=== PATIENT | male | born 1970 | race Caucasian/White ===

== ENCOUNTER 2019-05-23 23:39 | Emergency (ER) | payer OTHER ==
[2019-05-24 01:43] VITALS: BP 113/74; BMI 26.2
[2019-05-24] MEDS ORDERED: DEXAMETHASONE SOD PHOSPHATE 10 MG/1 ML VIAL IM ONE (02:24)
[2019-05-24] MEDS ORDERED: KETOROLAC TROMETHAMINE 60 MG/2 ML VIAL IM ONE (02:24)
[2019-05-24] MEDS ORDERED: KETOROLAC TROMETHAMINE 60 MG/2 ML VIAL ONE (02:26)
[2019-05-24] MEDS ORDERED: DEXAMETHASONE SOD PHOSPHATE 10 MG/1 ML VIAL ONE (02:26)
--- NOTE | 2019-05-24 02:32 | PDOC ---
History of Present Illness - General Chief Complaint: Sore Throat Stated Complaint: FEVER, SORE THROAT Time Seen by Provider: 05/24/19 02:30 History Source: Patient Exam Limitations: No Limitations - History of Present Illness Initial Comments: HPI: 48 y/o male presenting to [facility] ER complaining of fevers x4 days, sore throat, "coughing up blood," and bilateral lower back pain. Some relief with OTC Acetaminophen and Ibuprofen; last used yesterday. Reports unintentional 30 lbs weightloss over the past week. Denies chest pain or shortness of breath. Denies night sweats, known TB exposure, recent incarceration, international travel, or visits to wooded areas. No primary care doctor. 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 Social Hx: - EtOH: Denies - Tobacco: Denies - Street drugs: Denies, never used needles Medical Hx: - Prediabetes Review of Systems: In addition to that documented in the HPI above, the additional ROS was obtained : Constitutional- Endorses fevers and chills Head- Denies vision changes ENMT- Endorses sore throat CV- Denies chest pain Resp- Denies SOB GI- Denies vomiting or diarrhea - Denies painful urination, hematuria, or increased urinary frequency MSK- Denies recent trauma Skin- Noticed dots on left arm today Neuro- Denies new numbness or tingling or weakness Endocrine- Denies polyuria Heme- Denies bleeding or bruising Physical Examination: Vital signs and nursing notes reviewed. Constitutional- Diaphoretic adult male in no acute distress or obvious discomfort. Found semi-fowlers on hospital bed. Answered all questions appropriately and completely. Head- Normocephalic. No obvious external signs of trauma. Eyes- Sclerae white. Ears- Hearing grossly intact. Nose- No nasal discharge. Throat- Mild erythema without exudates in posterior oropharynx. No buccal lesions. Teeth and gingiva in good general condition. Neck- Supple, trachea is midline. No cervical or supraclavicular lymphadenopathy. Cardiovascular / Chest- Regular rate and regular rhythm. No murmur, rubs, clicks , or gallops. Peripheral pulses- radial pulses full. No anterior chest wall tenderness. Respiratory- Breathing unlabored. Equal chest rise and fall. Clear to auscultation bilaterally. No stridor, no wheezing, no rhonchi. Gastrointestinal- abdomen is soft, non-tender, non-distended. Neuro- Alert and oriented x4. Moving all four extremities spontaneously. Skin- Diaphoretic. Noted singular maculopapular lesions to the left upper extremity. Nonpainful. No erythema. No janeway lesions or osler nodes. - No R or L CVA tenderness. Psych- Affect- appropriate. Mood- normal. Speech was non-labored, non- pressured. MDM: 48 y/o male presenting with sore throat and a fever. Febrile at triage; given acetaminophen. Vitals unremarkable for hypotension or tachycardia. Physical exam as described above. Possible strep pharyngitis vs viral pharyngitis. Ordered Decadron, toradol, and LR IVFB for symptom relief. CXR unremarkable for acute cardiopulmonary pathology per ED wet read. Radiology report pending. Reviewed laboratory data. No leukocytosis. No other significant derangement. Rapid strep positive. Will prescribe Amoxicillin. Given first dose in the ED. Discussed physical exam findings, laboratory results, and xrays findings with pt. Answered all questions. Provided return precautions. pt expressed verbal understanding and agreement with plan to discharge home with outpatient follow up. Provided copies of todays results. Referred pt to resident clinic for follow up. Duglas Bo M.D., PGY2 Emergency Medicine Resident Past History - Past Medical History Allergies/Adverse Reactions: Allergies Allergy/AdvReac Type Severity Reaction Status Date / Time No Known Allergies Allergy Verified 05/25/19 15:59 Home Medications: Ambulatory Orders Amoxicillin/Potassium Clav [Augmentin 875-125 Tablet] 1 each PO BID 10 Days #20 tablet 05/24/19 - Psycho Social/Smoking Cessation Hx Smoking History: Never smoked Information on smoking cessation initiated: No Hx Alcohol Use: No Drug/Substance Use Hx: No *Physical Exam - Vital Signs Last Vital Signs Temp Pulse Resp BP Pulse Ox 103 F H 88 16 113/74 98 05/23/19 23:45 05/23/19 23:45 05/23/19 23:45 05/23/19 23:45 05/23/19 23:45 ED Treatment Course - LABORATORY CBC & Chemistry Diagram: 05/24/19 04:00 05/24/19 04:00 Discharge - Discharge Information Problems reviewed: Yes Clinical Impression/Diagnosis: Strep pharyngitis Condition: Good Disposition: HOME - Admission No - Additional Discharge Information Prescriptions: Amoxicillin/Potassium Clav [Augmentin 875-125 Tablet] 1 each PO BID 10 Days #20 tablet - Follow up/Referral Referrals: [facility] [place] [facility] [Provider Group] - Patient Discharge Instructions Patient Printed Discharge Instructions: DI for Strep Throat, Amoxicillin and Clavulanic Acid Additional Instructions: You were seen today for sore throat and fever. Your rapid strep test was positive. This is likely the cause of your symptoms. You can take over the counter Tylenol or Advil as needed for pain and fever. Take as directed on the package insert. Do not exceed the recommended dosage. Follow up with your primary care doctor in the next two weeks. You will need to call to make an appointment. The number is included in this packet. A copy of todays results are attached to this packet. Take it to the appointment so your doctor can review them. I have entered a referral for you to see a primary care physician at [facility] [place] [facility]. You will need to call to make an appointment. The telephone number is [phone]. The address is- [facility] at [address] [place] [address] Go to the nearest emergency department if your condition worsens or you feel like you need additional emergency evaluation. Print Language: GUINEAN - Post Discharge Activity Work/Back to School Note: Back to Work
--- NOTE | 2019-05-24 02:32 | PDOC ---
Attending Attestation - Resident Resident Name: Duglas Bo - ED Attending Attestation I have performed the following: I have examined & evaluated the patient, The case was reviewed & discussed with the resident, I agree w/resident's findings & plan - HPI HPI: 05/24/19 06:04 see resident hpi - Physicial Exam PE: 05/24/19 06:04 agree with resident exam - Medical Decision Making 05/24/19 06:04 48-year-old male with fever and sore throat Chest x-ray shows no focal infiltrate Patient given Toradol and Decadron Strep screen is positive There are no indicators of retropharyngeal abscess or epiglottitis Patient is well-appearing walking around the emergency department and improved Will DC on Augmentin
[2019-05-24] MEDS ORDERED: LACTATED RINGERS SOLUTION 1000 ML INFUS.BAG IV ONE (03:53)
[2019-05-24] MEDS ORDERED: ACETAMINOPHEN 1000 MG/100 ML VIAL (NON FORMULARY) IVPB ONE (03:53)
[2019-05-24] MEDS ORDERED: ACETAMINOPHEN INJECTION 100 ML IVPB ONE (03:55)
[2019-05-24 05:09] LABS: BASO % 0.7 % (0-2.0); HEMATOCRIT 39.6 % (35.4-49); HEMOGLOBIN 13.1 GM/dL (11.7-16.9); LYMPH % 16.8 % (8-40); MCH 27.7 pg (25.7-33.7); MCHC 33.1 g/dl (32.0-35.9); MEAN CELL VOLUME 83.5 fl (80-96); MEAN PLT VOLUME 9.1 fl (7.5-11.1); MONO % 9.8 % (3.8-10.2); NEUT % 72.7 % (42.8-82.8); PLATELET COUNT 208 K/MM3 (134-434); RBC 4.74 M/mm3 (4.00-5.60); RDW 13.3 % (11.9-15.9); WHITE BLOOD COUNT 4.6 K/mm3 (4.0-10.0)
[2019-05-24 05:50] LABS: ALBUMIN 3.4 g/dl (3.4-5.0); BILIRUBIN,TOTAL 0.5 mg/dL (0.2-1); BLOOD UREA NITROGEN 14.4 mg/dL (7-18); CALCIUM 8.3 mg/dL (8.5-10.1); CREATININE 1.1 mg/dL (0.55-1.3); POTASSIUM 3.8 mmol/L (3.5-5.1); TOT PROT 6.7 g/dl (6.4-8.2)
[2019-05-24] MEDS ORDERED: AMOX TR/POT CLAV 875MG/125MG TABLETS (FP) PO ONE (06:05)
[2019-05-24] MEDS ORDERED: AMOX TR/POT CLAV 875MG/125MG TABLETS (FP) ONE (06:20)
[2019-05-24 06:29] VITALS: PULSE 83; TEMP 99
--- NOTE | 2019-05-24 15:10 | EKG ---
Test Reason : Blood Pressure : / mmHG Vent. Rate : 064 BPM Atrial Rate : 064 BPM P-R Int : 164 ms QRS Dur : 088 ms QT Int : 378 ms P-R-T Axes : 072 048 054 degrees QTc Int : 389 ms NORMAL SINUS RHYTHM POSSIBLE LEFT ATRIAL ENLARGEMENT BORDERLINE ECG NO PREVIOUS ECGS AVAILABLE Confirmed by AKBAR LARES, SLIM ([id number]) on 05/24/2019 3:09:49 PM Referred By: Confirmed By:SLIM WEBBER MD
== END 2019-05-24 06:29 | disposition home or self-care (01) ==
LOC: JER 23:39
PROC: 3E033NZ Introduction of Analgesics, Hypnotics, Sedatives into Peripheral Vein, Percutaneous Approach (ICD-10-PCS; principal; 2019-05-23)
PROC: 3E0233Z Introduction of Anti-inflammatory into Muscle, Percutaneous Approach (ICD-10-PCS; 2019-05-23)
PROC: 3E0233Z Introduction of Anti-inflammatory into Muscle, Percutaneous Approach (ICD-10-PCS; 2019-05-23)
DX: J02.0 Streptococcal pharyngitis (principal); B95.0 Streptococcus, group A, as the cause of diseases classified elsewhere
CPT/HCPCS: 36415; 71046-TC-FY; 80053; 85025; 87880; 93005; 93010; 99283-25; J0131; J1100

== ENCOUNTER 2019-05-25 15:55 | Emergency (ER) | payer OTHER ==
[2019-05-25 16:03] VITALS: BMI 49.6
--- NOTE | 2019-05-25 16:04 | PDOC ---
Rapid Medical Evaluation Chief Complaint: Cold Symptoms Time Seen by Provider: 05/25/19 15:58 Medical Evaluation: Allergies Allergy/AdvReac Type Severity Reaction Status Date / Time No Known Allergies Allergy Verified 05/25/19 15:59 05/25/19 16:01 Pt c/o: continual headache and fever, started augmentin yesterday for strep Pt on brief exam: vss, in NAD Pt ordered for: none pt to proceed to the ED Discharge Disposition - Diagnosis Strep throat - Discharge Dispostion Disposition: HOME Condition at time of disposition: Stable - Referrals - Patient Instructions Additional Instructions: Continue amoxicillin as prescribed. Salt water garggles. Throw away your toothbrush in 2 days and start using a new toothbrush. No sharing of drinks, utensils or toothbrushes. Take Tylenol and/or Motrin as directed by spindle tester's instructions. Return to ED for worsening fevers, worsening sore throat, chest pain, shortness of breath or any other concerns. - Post Discharge Activity
[2019-05-25 18:37] LABS: URINE APPEARANCE CLEAR; URINE BILIRUBIN NEGATIVE (NEGATIVE); URINE COLOR YELLOW; URINE GLUCOSE (UA) NEGATIVE (NEGATIVE); URINE KETONE NEGATIVE (NEGATIVE); URINE LEUK ESTERASE NEGATIVE (NEGATIVE); URINE NITRITE NEGATIVE (NEGATIVE); URINE PROTEIN TRACE (NEGATIVE)
[2019-05-25 18:39] LABS: BASO % 0.6 % (0-2.0); HEMATOCRIT 41.7 % (35.4-49); HEMOGLOBIN 13.7 GM/dL (11.7-16.9); LYMPH % 43.1 % (8-40); MCH 27.4 pg (25.7-33.7); MCHC 32.8 g/dl (32.0-35.9); MEAN CELL VOLUME 83.8 fl (80-96); MEAN PLT VOLUME 8.8 fl (7.5-11.1); MONO % 14.8 % (3.8-10.2); NEUT % 41.5 % (42.8-82.8); PLATELET COUNT 212 K/MM3 (134-434); RBC 4.98 M/mm3 (4.00-5.60); RDW 13.5 % (11.9-15.9); WHITE BLOOD COUNT 6.2 K/mm3 (4.0-10.0)
[2019-05-25 19:01] LABS: BLOOD UREA NITROGEN 14.6 mg/dL (7-18); CALCIUM 8.3 mg/dL (8.5-10.1); CREATININE 1.2 mg/dL (0.55-1.3); POTASSIUM 4.1 mmol/L (3.5-5.1)
--- NOTE | 2019-05-25 19:16 | PDOC ---
History of Present Illness - General Chief Complaint: Cold Symptoms Stated Complaint: FEVER Time Seen by Provider: 05/25/19 15:58 History Source: Patient, Old Records Exam Limitations: No Limitations - History of Present Illness Initial Comments: 05/25/19 19:31 HISTORY OF PRESENT ILLNESS: 48-year-old male presents emergency department for continued subjective fevers at the diagnosed with streptococcal pharyngitis on . Patient denies any worsening pain, difficulty breathing, difficulty swallowing, or change in voice. No recent travel or sick contacts. PAST MEDICAL HISTORY: Denies past medical history SURGICAL HISTORY: Denies ALLERGIES: No known drug allergies REVIEW OF SYSTEMS General/Constitutional: See HPI HEENT: Denies change in vision. Denies ear pain or discharge. Denies sore throat. Cardiovascular: Denies chest pain or shortness of breath. Respiratory: Denies cough, wheezing, or hemoptysis. Gastrointestinal: Denies nausea, vomiting, diarrhea or constipation. Denies rectal bleeding. Genitourinary: Denies dysuria, frequency, or change in urination. Musculoskeletal: Denies joint or muscle swelling or pain. Denies neck or back pain. Skin and breasts: Denies rash or easy bruising. Neurologic: Denies headache, vertigo, loss of consciousness, or loss of sensation. Psychiatric: Denies depression or anxiety. Endocrine: Denies increased thirst. Denies abnormal weight change. Hematologic/Lymphatic: Denies anemia, easy bleeding, or history of blood clots. Allergic/Immunologic: Denies hives or skin allergy. Denies latex allergy. PHYSICAL EXAM General Appearance: Well-appearing, appropriately dressed. No apparent distress , no intoxication. HEENT: EOMI, PERRLA, normal ENT inspection, normal voice, TMs normal. No conjunctival pallor. No photophobia, scleral icterus. Oropharynx beefy red without exudates present. Uvula is midline. Neck: Supple. Trachea midline. No tenderness, rigidity, carotid bruit, stridor , lymphadenopathy, or thyromegaly. Respiratory/Chest: Lungs CTAB. No shortness of breath, chest tenderness, respiratory distress, accessory muscle use. No crackles, rales, rhonchi, stridor , wheezing, dullness Cardiovascular: RRR. S1, S2. No JVD, murmur, bradycardia, tachycardia. Lymphatic: No adenopathy, tenderness. 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 Fully oriented, alert. Appropriate mood/affect. Motor strength 5/5. No appreciable EOM palsy, facial droop or sensory deficit. Past History - Past Medical History Allergies/Adverse Reactions: Allergies Allergy/AdvReac Type Severity Reaction Status Date / Time No Known Allergies Allergy Verified 05/25/19 15:59 Home Medications: Ambulatory Orders Amoxicillin/Potassium Clav [Augmentin 875-125 Tablet] 1 each PO BID 10 Days #20 tablet 05/24/19 COPD: No - Psycho Social/Smoking Cessation Hx Smoking History: Never smoked Hx Alcohol Use: No Drug/Substance Use Hx: No *Physical Exam - Vital Signs Last Vital Signs Temp Pulse Resp BP Pulse Ox 98.9 F 69 16 93/51 L 05/25/19 16:00 05/25/19 16:00 05/25/19 16:00 05/25/19 16:00 ED Treatment Course - LABORATORY CBC & Chemistry Diagram: 05/25/19 18:10 05/25/19 18:10 - ADDITIONAL ORDERS Additional order review: Laboratory Results 05/25/19 05/25/19 18:10 18:10 Sodium 132 L Potassium 4.1 Chloride 98 Carbon Dioxide 27 Anion Gap 7 L BUN 14.6 Creatinine 1.2 Est GFR (CKD-EPI)AfAm 81.23 Est GFR (CKD-EPI)NonAf 70.09 Random Glucose 104 Calcium 8.3 L Urine Color Yellow Urine Appearance Clear Urine pH 6.0 Ur Specific [place] 1.024 Urine Protein Trace Urine Glucose (UA) Negative Urine Ketones Negative Urine Blood Negative Urine Nitrite Negative Urine Bilirubin Negative Urine Urobilinogen 1.0 Ur Leukocyte Esterase Negative 05/25/19 18:10 RBC 4.98 MCV 83.8 MCHC 32.8 RDW 13.5 MPV 8.8 Neutrophils % 41.5 L D Lymphocytes % 43.1 H D Monocytes % 14.8 H Eosinophils % 0.0 Basophils % 0.6 Medical Decision Making - Medical Decision Making 05/25/19 19:33 A/P: 48-year-old male with continued fevers after recent diagnosis of streptococcal infection Mild lower back pain. No bony tenderness, deformity or step-off noted. Able to flex and extend lumbar spine without difficulty. Given mild lower back pain I will get basic labs and urinalysis to rule out streptococcal glomerulonephritis. Urinalysis, BMP are unremarkable. Repeat blood pressure 96/59. Discharge home Discharge - Discharge Information Problems reviewed: Yes Clinical Impression/Diagnosis: Strep throat Condition: Stable Disposition: HOME - Admission No - Follow up/Referral - Patient Discharge Instructions Additional Instructions: Continue amoxicillin as prescribed. Salt water garggles. Throw away your toothbrush in 2 days and start using a new toothbrush. No sharing of drinks, utensils or toothbrushes. Take Tylenol and/or Motrin as directed by aerial photographer's instructions. Return to ED for worsening fevers, worsening sore throat, chest pain, shortness of breath or any other concerns. - Post Discharge Activity
[2019-05-25 19:37] VITALS: BP 99/61; PULSE 62; TEMP 98.5
== END 2019-05-25 19:36 | disposition home or self-care (01) ==
LOC: JERFT 15:55
DX: J02.0 Streptococcal pharyngitis (principal)
CPT/HCPCS: 36415; 80048; 81003; 85025; 99282-25

== ENCOUNTER 2019-07-05 08:38 | Emergency (ER) | payer OTHER ==
[2019-07-05 08:44] VITALS: BP 130/76; PULSE 64; TEMP 98.4; BMI 23.6
--- NOTE | 2019-07-05 09:15 | PDOC ---
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 Denies feeling pop or snap to area but since that time is had pain was progressively worsening. Denies numbness or tingling in hands, no elbow pain. Occurred: reports: last week Severity: reports: mild, moderate Pain Location: reports: upper extremity Loss of Consciousness: no loss of consciousness Associated Symptoms (Fall): denies symptoms Past History - Travel Traveled outside of the country in the last 30 days: No Close contact w/someone who was outside of country & ill: No - Past Medical History Allergies/Adverse Reactions: Allergies Allergy/AdvReac Type Severity Reaction Status Date / Time No Known Allergies Allergy Verified 05/25/19 15:59 Home Medications: Ambulatory Orders Amoxicillin/Potassium Clav [Augmentin 875-125 Tablet] 1 each PO BID 10 Days #20 tablet 05/24/19 Ibuprofen 400 mg PO Q6H #30 tablet 07/05/19 COPD: No - Immunization History Immunization Up to Date: No - Psycho Social/Smoking Cessation Hx Smoking History: Never smoked Have you smoked in the past 12 months: No Information on smoking cessation initiated: No Hx Alcohol Use: No Drug/Substance Use Hx: No Review of Systems - Review of Systems Able to Perform ROS?: Yes Is the patient limited Fijian proficient: No Constitutional: Yes: Symptoms Reported, See HPI HEENTM: Yes: See HPI Respiratory: Yes: See HPI, Cough Musculoskeletal: Yes: Symptoms Reported, See HPI, Joint Pain, Muscle Pain Integumentary: Yes: Symptoms Reported, See HPI Neurological: Yes: Symptoms reported All Other Systems: Reviewed and Negative *Physical Exam - Vital Signs Last Vital Signs Temp Pulse Resp BP Pulse Ox 98.4 F 64 16 130/76 100 07/05/19 08:41 07/05/19 08:41 07/05/19 08:41 07/05/19 08:41 07/05/19 08:41 - Physical Exam General Appearance: Yes: Nourished, Appropriately Dressed, Apparent Distress, Mild Distress HEENT: positive: DIANNA, TMs Normal, Pharynx Normal Neck: positive: Tender, Supple Respiratory/Chest: positive: Lungs Clear, Normal Breath Sounds Musculoskeletal: positive: Normal Inspection. negative: CVA Tenderness Extremity: positive: Normal Capillary Refill, Normal Inspection. negative: Normal Range of Motion (Limited range of motion to abduction past 90 degrees, and reproduces pain against resistance, same for forward flexion. Has strong grasp flexion extension has strong bicep and tricep contraction with ligaments intact. Neurovascular intact to hand. Has no crepitus or step-offs no bony tenderness to clavicle or scapula. 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, Fully Oriented, Alert, Normal Mood/Affect, Normal Response, Motor Strength 09/03 ED Progress Note - Progress Note Progress Note: 07/05/19 15:01 Right shoulder sprain, will treat with NSAIDs and have follow-up with Ortho Discharge - Discharge Information Problems reviewed: No Clinical Impression/Diagnosis: Shoulder pain, right Condition: Stable Disposition: HOME - Admission No - Additional Discharge Information Prescriptions: Ibuprofen 400 mg PO Q6H #30 tablet - Follow up/Referral Referrals: Madi Sanchez MD [Staff Physician] - - Patient Discharge Instructions Patient Printed Discharge Instructions: DI for Shoulder Sprain Additional Instructions: Rest, avoid strenuous activity until pain resolves or cleared May use ibuprofen, 2 tabs every 6 hours with food as needed for pain Follow-up with orthopedist for further evaluation and possible further testing. - Post Discharge Activity Work/Back to School Note: Back to Work
== END 2019-07-05 09:57 | disposition home or self-care (01) ==
LOC: JERFT 08:38
DX: S43.491A Other sprain of right shoulder joint, initial encounter (principal); X50.0XXA Overexertion from strenuous movement or load, initial encounter; Y93.G9 Activity, other involving cooking and grilling; Y99.0 Civilian activity done for income or pay; Y92.89 Other specified places as the place of occurrence of the external cause
CPT/HCPCS: 73030-TC-RT-FY; 99283-25

== ENCOUNTER 2021-04-26 14:55 | Emergency (ER) | payer OTHER ==
[2021-04-26 15:40] VITALS: BP 99/63; PULSE 68; TEMP 101.1; BMI 24.0
[2021-04-28 10:07] LABS: SARS-CoV-2 NAA Not Detected (Not Detected)
== END 2021-04-26 16:40 | disposition home or self-care (01) ==
LOC: JER 14:55
DX: J06.9 Acute upper respiratory infection, unspecified (principal); B34.9 Viral infection, unspecified
CPT/HCPCS: 71046-TC-FY; 87804; 99284-25; C9803; U0003; U0005

== ENCOUNTER 2021-05-02 16:31 | Emergency (ER) | payer OTHER ==
[2021-05-02 16:52] VITALS: BMI 22.9
[2021-05-02] MEDS ORDERED: ACETAMINOPHEN 1000 MG/100 ML BAG IVPB ONE (18:51)
[2021-05-02] MEDS ORDERED: SODIUM CHLORIDE 0.9% 500 ML INFUS.BAG IV ONE (18:51)
[2021-05-02] MEDS ORDERED: METOCLOPRAMIDE HCL INJECTION 10 MG/2 ML VIAL IVPUSH ONE (19:12)
[2021-05-02] MEDS ORDERED: ACETAMINOPHEN INJECTION 100 ML IVPB ONE (19:48)
[2021-05-02] MEDS ORDERED: METOCLOPRAMIDE HCL INJECTION 10 MG/2 ML VIAL ONE (19:48)
[2021-05-03 00:30] VITALS: BP 93/57; PULSE 62; TEMP 98.9
== END 2021-05-02 23:24 | disposition home or self-care (01) ==
LOC: JER 16:31
PROC: 3E0333Z Introduction of Anti-inflammatory into Peripheral Vein, Percutaneous Approach (ICD-10-PCS; principal; 2021-05-02)
PROC: 3E033GC Introduction of Other Therapeutic Substance into Peripheral Vein, Percutaneous Approach (ICD-10-PCS; 2021-05-02)
DX: R51.9 Headache, unspecified (principal); R42 Dizziness and giddiness
CPT/HCPCS: 93005; 93010; 99284-25; J0131

== ENCOUNTER 2022-12-29 04:28 | Day surgery (SDC) | payer OTHER ==
[2022-12-27 11:21] VITALS: BMI 23.6
[~2022-12-29 04:28] MED LIST: ACETAMINOPHEN 325 MG TABLET (FP) PO PRN; CYCLOPENTOLATE HCL 1% OPHTH SOLN 2 ML BOTTLE OP SCH; KETOROLAC TROMETHAMINE 0.5% EYE DROP 1 DROP DROPS OP SCH; OFLOXACIN 0.3% OPHTHALMIC SOLUTION 5 ML BOTTLE OP SCH; PHENYLEPHRINE 2.5% OPHTH SOLN 15 ML BOTTLE OP SCH; TROPICAMIDE 1% OPHTH SOLN 15 ML BOTTLE OP SCH
[2022-12-29] MEDS ORDERED: PHENYLEPHRINE 2.5% OPTHALMIC DROP 2ML BOTTLE ONE (07:33)
[2022-12-29] MEDS ORDERED: KETOROLAC TROMETHAMINE 0.5% EYE DROP 1 DROP DROPS ONE (07:34)
[2022-12-29] MEDS ORDERED: TROPICAMIDE 1% 3 ML EYE DROPS ONE (07:34)
[2022-12-29] MEDS ORDERED: CYCLOPENTOLATE HCL 1% OPHTH SOLN 2 ML BOTTLE ONE (07:34)
[2022-12-29] MEDS ORDERED: OFLOXACIN 0.3% OPHTHALMIC SOLUTION 5 ML BOTTLE ONE (07:34)
[2022-12-29] MEDS ORDERED: PHENYLEPHRINE 2.5% OPHTH SOLN 15 ML BOTTLE OS ONE ×3 (08:00→08:10)
[2022-12-29] MEDS ORDERED: CYCLOPENTOLATE HCL 1% OPHTH SOLN 2 ML BOTTLE OS ONE ×3 (08:00→08:10)
[2022-12-29] MEDS ORDERED: TROPICAMIDE 1% OPHTH SOLN 15 ML BOTTLE OS ONE ×3 (08:00→08:10)
[2022-12-29] MEDS ORDERED: KETOROLAC TROMETHAMINE 0.5% EYE DROP 1 DROP DROPS OS ONE ×3 (08:00→08:10)
[2022-12-29] MEDS ORDERED: OFLOXACIN 0.3% OPHTHALMIC SOLUTION 5 ML BOTTLE OS ONE ×3 (08:00→08:10)
[2022-12-29] MEDS ORDERED: TETRACAINE 0.5% OPHTH SOLN 2 ML BOTTLE OS ONE (09:06)
[2022-12-29] MEDS ORDERED: POVIDONE-IODINE 5% OPHTHALMIC PREP 30 ML SOLUTION OS ONE (09:08)
[2022-12-29] MEDS ORDERED: LIDOCAINE 1% P/F 10 MG/ML VIAL SNB ONE (09:18)
[2022-12-29] MEDS ORDERED: EPINEPHrine/PF 1 MG/1 ML (1:1,000) AMPULE SQ ONE (09:21)
[2022-12-29] MEDS ORDERED: BSS (NA/CA/MG/K) BALANCED SALT SOLUTION OPHTH SOLN 15 ML BOTTLE OS ONE (09:21)
[2022-12-29] MEDS ORDERED: CHONDROITIN SU A/HYALUR SOD 1 KIT IO ONE (09:21)
[2022-12-29 12:57] VITALS: RESP 20; TEMP 97.3
[2022-12-29 13:03] VITALS: BP 124/72; PULSE 51
== END 2022-12-29 10:50 | disposition home or self-care (01) ==
LOC: JASU-SURG 04:28
PROVIDERS: ATTEND Ophthalmology
PROC: 08RK3JZ Replacement of Left Lens with Synthetic Substitute, Percutaneous Approach (ICD-10-PCS; principal; 2022-12-29 09:00)
DX: H26.9 Unspecified cataract (principal)
CPT/HCPCS: V2632